=== PATIENT | female | born 1995 | race Caucasian/White ===

== ENCOUNTER 2021-10-04 16:00 | Emergency (ER) | payer OTHER, SELFPAY ==
[2021-10-04 16:12] VITALS: PULSE 80; RESP 20; TEMP 36.7; O2SAT 100
--- NOTE | 2021-10-04 16:14 | DI.RAD.S_ITS ---
PROCEDURE: XR RIBS LT MIN 3V W CXR1V INDICATIONS: felt a pop, pain TECHNIQUE: To views of the left ribs were acquired, along with a single view chest. COMPARISON: None. FINDINGS: Surgical changes and devices: None. Bones and chest wall: No fractures or dislocations. No suspicious bony lesions. Overlying soft tissues appear unremarkable. Lungs and pleura: No pleural effusions or pneumothorax. Lungs appear clear. Mediastinum: Mediastinal contours appear normal. Heart size is normal. IMPRESSION: No acute cardiopulmonary findings Unremarkable left ribs without fracture. Approved by: Abdullahi Allen M.D. on 10/04/2021 at 15:45
--- NOTE | 2021-10-04 17:57 | ED.UPPEXIN ---
HPI - Extremity Injury (Upper) <SAYDA Magaña - Last Filed: 10/04/21 18:27> General Chief Complaint: Extremity Injury, Upper Stated Complaint: cough/left rib pain Time Seen by Provider: 10/04/21 16:08 Source: patient Mode of arrival: Ambulatory History of Present Illness HPI narrative: 26-year-old female with past medical history which includes COVID in mid August with long course with a residual cough. Patient states that her cough has improved but she has had this sharp left upper rib pain since yesterday at 2:00 p.m. after coughing episode. Patient was concerned that 1 of her ribs was out of place. Patient denies any trauma, denies any fever, states that her cough is improving and she is not really coughing anymore today. She overall is feeling well but has tenderness to the left rib area. She denies any chest pain, shortness of breath, wheezing, nausea vomiting, rash, or other symptom. Related Data Previous Rx's Medication Instructions Recorded diclofenac sodium 1 % topical gel 2 g TOPICAL QID PRN #100 g 10/04/21 (Voltaren Arthritis Pain) lidocaine 5 % topical patch 1 patch TOPICAL DAILY #15 ea 10/04/21 methocarbamol 500 mg tablet 500 mg PO TID PRN #14 tab 10/04/21 Allergies Allergy/AdvReac Type Severity Reaction Status Date / Time No Known Drug Allergies Allergy Verified 10/04/21 16:14 Review of Systems <SAYDA Magaña - Last Filed: 10/04/21 18:27> Review of Systems Narrative: General: denies fever, chills, malaise, sweats, fatigue Head/Neck: denies headache, neck pain, dizziness Eyes: denies visual changes, eye pain Cardio: denies chest pain, palpitations, edema Respiratory: denies dyspnea, cough, orthopnea GI: denies abdominal pain, nausea, vomiting, or diarrhea : denies dysuria, hematuria, urinary retention, frequency or incontinence MSK: denies joint pain, muscle weakness Skin: denies rash, itching, skin lesions or other Neuro: denies numbness, tingling Exam <SAYDA Magaña - Last Filed: 10/04/21 18:27> Narrative Exam Narrative: Independently reviewed vitals signs and nursing notes. General: Cooperative, comfortable, in no acute distress, well developed and well groomed Head/Neck: Normal visual inspection and supple, atraumatic Eyes: Pupils equal round and reactive, EOMI, conjunctiva normal, no scleral icterus or injections Nose: External nose normal, nares patent, no rhinorrhea Mouth/Throat: uvula midline, moist mucus membranes Cardio: Regular rate and rhythm, no peripheral edema, warm extremities Respiratory: Normal respiratory effort, able to speak in complete sentences without audible wheezing, stridor, or rales. No retractions. Guarding left upper ribs with exam, no crepitus, breath sounds are clear throughout all justin, no cough. GI: Abdomen soft, nontender to palpation x4 quadrants, non-distended, no masses or exquisite tenderness with exam, no flank tenderness MSK: Moves all extremities, neurovascularly intact Skin: Normal capillary refill, no rash Neuro: Normal speech and cognition, normal gait, A&O x3, tone normal, moves all extremities Psych: Mental status is grossly normal, speech is clear, congruent mood, normal affect Initial Vital Signs Initial Vital Signs: Vital Signs Temperature 98.0 F 10/04/21 16:12 Pulse Rate 80 10/04/21 16:12 Respiratory Rate 20 10/04/21 16:12 Pulse Oximetry 100 10/04/21 16:12 <Greg Vigil DO - Last Filed: 10/08/21 18:54> Initial Vital Signs Initial Vital Signs: Vital Signs Temperature 98.0 F 10/04/21 16:12 Pulse Rate 80 10/04/21 16:12 Respiratory Rate 20 10/04/21 16:12 Pulse Oximetry 100 10/04/21 16:12 Course <SAYDA Magaña - Last Filed: 10/04/21 18:27> Orders Ordered: Discontinued Medications Acetaminophen (Acetaminophen 325 Mg Tablet) 975 mg PO NOW ONE Stop: 10/04/21 18:06 Last Admin: 10/04/21 18:19 Dose: 975 mg Documented by: LILY Diazepam (Diazepam 2 Mg Tablet) 2 mg PO NOW ONE Stop: 10/04/21 18:06 Last Admin: 10/04/21 18:20 Dose: 2 mg Documented by: LILY Lidocaine (Lidocaine Patch 1 Each Adh..Patch) 1 each TOP NOW ONE Stop: 10/04/21 18:06 Last Admin: 10/04/21 18:20 Dose: 1 each Documented by: LILY Methocarbamol (Methocarbamol 500 Mg Tablet) 500 mg PO NOW ONE Stop: 10/04/21 18:06 Last Admin: 10/04/21 18:20 Dose: 500 mg Documented by: LILY Vital Signs Vital signs: Vital Signs - 8 hr 10/04/21 16:12 Temperature 98.0 F Pulse Rate 80 Respiratory Rate 20 Pulse Oximetry 100 <Greg Vigil DO - Last Filed: 10/08/21 18:54> Orders Ordered: Discontinued Medications Acetaminophen (Acetaminophen 325 Mg Tablet) 975 mg PO NOW ONE Stop: 10/04/21 18:06 Last Admin: 10/04/21 18:19 Dose: 975 mg Documented by: LILY Diazepam (Diazepam 2 Mg Tablet) 2 mg PO NOW ONE Stop: 10/04/21 18:06 Last Admin: 10/04/21 18:20 Dose: 2 mg Documented by: LILY Lidocaine (Lidocaine Patch 1 Each Adh..Patch) 1 each TOP NOW ONE Stop: 10/04/21 18:06 Last Admin: 10/04/21 18:20 Dose: 1 each Documented by: LILY Methocarbamol (Methocarbamol 500 Mg Tablet) 500 mg PO NOW ONE Stop: 10/04/21 18:06 Last Admin: 10/04/21 18:20 Dose: 500 mg Documented by: LILY Vital Signs Vital signs: Vital Signs - 8 hr 10/04/21 16:12 Temperature 98.0 F Pulse Rate 80 Respiratory Rate 20 Pulse Oximetry 100 MDM - Extremity Injury (Upper) <[facility] - Last Filed: 10/04/21 18:27> Imaging Data ribs XR: Radiologist's Impression: PROCEDURE:? XR RIBS LT MIN 3V W CXR1V ? INDICATIONS:? felt a pop, pain ? TECHNIQUE:? To views of the left ribs were acquired, along with a single view chest.? ? COMPARISON:? None. ? FINDINGS:? ? Surgical changes and devices:? None.? ? Bones and chest wall:? No fractures or dislocations.? No suspicious bony lesions.? Overlying soft tissues appear unremarkable.? ? Lungs and pleura:? No pleural effusions or pneumothorax.? Lungs appear clear.? ? Mediastinum:? Mediastinal contours appear normal.? Heart size is normal.? ? IMPRESSION:? ? No acute cardiopulmonary findings Unremarkable left ribs without fracture. ? ? ? Approved by: Abdullahi Allen M.D. on 10/04/2021 at 15:45? [facility] Narrative Medical decision making narrative: 26-year-old female presents to the emergency department for left-sided rib pain after coughing episode yesterday. Patient states that she had COVID in the middle of August with a long residual cough. She denies any illness at this time, states that her cough has improved greatly, she has 2 small children at home and endorses that her fatigue might be contributing to her overall pain. Patient states that she felt a warm-after a short pain during her coughing episode it and was concerned for bleeding. She denies any shortness of breath, chest pain, fever, difficulty breathing, nausea or vomiting. X-ray was negative for pneumothorax, fracture, without any acute cardiopulmonary findings. Overall soft tissues appeared unremarkable. Oral patient was given lidocaine patch, methocarbamol, she took ibuprofen last at 1:00 p.m. so she was not given Toradol, Tylenol and Valium. Patient states marked improvement in her symptoms. Instructed patient to follow-up with her PCP for a PT referral, instructed patient to do some light stretching, dehydrated, she is given strict return precautions, she is appropriate and amenable to discharge home. Vital signs are stable on repeat examination is unremarkable. Patient has been informed of results. Patient has been given strict return to ER precautions for any new or worsening symptoms. Patient understands to follow up closely with outpatient providers as instructed. Patient understands plan and agrees to discharge home. All questions and concerns answered at this time. Discharge Plan Departure Patient Disposition: Home Clinical Impression: Rib pain on left side, Acute costochondritis Instructions: DI for Costochondritis, DI for Rib Contusion Activity Restrictions/Additional Instructions: *You have been diagnosed with costochondritis. Please take ibuprofen every 6-8 hours, Tylenol every 6 hours, Robaxin every 8 hours as needed, and apply diclofenac gel where it is painful, allow it to dry, and apply a lidocaine patch. Please follow-up with your primary care provider for a physical therapy referral. You may try gentle stretching, pressures in the breast and cough, normal posture, this may go back into place or the inflammation around where the rib attaches to the cartilage may calm down and feel better soon. *What to do: *Please continue to take your regular medications as directed. [x ] New medication prescriptions sent to your pharmacy: [ [facility]] [ ] New medication written as a paper prescription [ ] No new medications given *Please follow up with your primary care provider in 2-3 days, call for an appointment. Let them know you were seen in the Emergency Department and that we ask that you be seen in follow up. We will electronically transmit a record of today's note if your PCP is in our system *If you do not have a primary care provider please contact the [facility] Resource line at [phone]. They will ask some questions about your medical history and help get you set up with a doctor in the community. *Return to Emergency Department if you should have any new, worsening or concerning symptoms, such as [fever greater than 101F, chills, worsening pain, persistent vomiting or other bothersome symptoms] Prescriptions: New lidocaine 5 % adhesive patch,medicated 1 patch topical DAILY Qty: 15 0RF Rx Instructions: leave on most painful area for up to 12 hrs methocarbamol 500 mg tablet 500 mg PO TID PRN (Reason: muscle spasm) Qty: 14 0RF diclofenac sodium [Voltaren Arthritis Pain] 1 % gel 2 g topical QID PRN (Reason: rib pain) Qty: 100 0RF Rx Instructions: apply to area over where ribs hurt <Greg Vigil DO - Last Filed: 10/08/21 18:54> Cosign ED Attending Cosignature Attestation: I was immediately available in the department for consultation. This documentation has been reviewed and I agree with assessment and plan. Supervised by Greg Vigil DO
[2021-10-04] MEDS: ACETAMINOPHEN 325 MG TABLET 975 MG PO (18:19)
[2021-10-04] MEDS: LIDOCAINE PATCH 1 EACH ADH..PATCH TOP (18:20)
[2021-10-04] MEDS: diazePAM 2 MG TABLET PO (18:20)
[2021-10-04] MEDS: methocarbamoL 500 MG TABLET PO (18:20)
== END 2021-10-04 18:24 | disposition home or self-care (01) ==
PROVIDERS: Emergency Provider Nurse Practitioner Critical Care Medicine
DX: M94.0 Chondrocostal junction syndrome [Tietze] (principal); R05.9 Cough, unspecified; Z86.16 Personal history of COVID-19
CPT/HCPCS: 71101; 99283

== ENCOUNTER 2022-08-28 17:19 | Emergency (ER) | payer OTHER, SELFPAY ==
--- NOTE | 2022-08-28 17:29 | DI.US.S_ITS ---
PROCEDURE: US OB <= 14 WEEKS FETUS INDICATIONS: SPOTTING OUTSIDE/PRIOR DATING DATA: Last menstrual period (LMP): 06/11/2022. LMP-based estimated date of delivery (THEODORA): 03/18/2023. First dating scan (date and location): 08/28/2022. Estimated date of delivery (THEODORA) from first dating scan: 04/08/2023. TECHNIQUE: Real-time scanning was performed of the fetus and maternal pelvic organs, with image documentation. Endovaginal scanning was also performed to better visualize the fetus and maternal ovaries. COMPARISON: None. FINDINGS: Embryo: Mentor-rump length measuring 1.7 cm corresponding to 8 weeks 1 day. Heart rate: No cardiac motion. Maternal organs: Right ovary is unremarkable. Left ovary is not seen. IMPRESSION: Guzman intrauterine . Mentor-rump length measuring 1.7 cm. No cardiac motion. Ultrasound findings diagnostic of failure. We strive to produce accurate, complete, and clear reports of imaging services. To assist us in improving patient care, this report was composed using standard report templates and voice recognition software. Therefore, it may contain abnormal punctuation, insertions and/or omissions. Occasional wrong-word or sound-alike substitutions may occur. Though we review the report and make efforts to correct it, we do recommend that the report be read carefully in proper context to recognize any text inaccuracies. Dictated by: Vinicius Saenz M.D. on 08/28/2022 at 20:46 Approved by: Vinicius Saenz M.D. on 08/28/2022 at 20:48
[2022-08-28 17:30] VITALS: BP 140/60; PULSE 100; RESP 16; TEMP 37; O2SAT 99; BMI 22.8
[2022-08-28 18:17] LABS: Add Manual Diff / Slide Review NO; Basophils Absolute Auto 0 /uL (0-100); Basophils Percent Auto 0.5 % (0-2); Eosinophils Absolute Auto 400 /uL (0-450); Eosinophils Percent Auto 4.4 % (2-4); Hematocrit 39.1 % (36-46); Hemoglobin 13.3 g/dL (12.0-16.0); Lymphocytes Absolute Auto 1400 /uL (1100-4500); Lymphocytes Percent Auto 17.6 % (25-40); Mean Corpuscular Hemoglobin 27.2 PG (26-34); Mean Corpuscular Volume 80.1 fL (80-100); Monocytes Absolute Auto 400 /uL (0-900); Monocytes Percent Auto 5.3 % (3-14); Neutrophils Absolute Auto 5900 /uL (1500-7000); Neutrophils Percent Auto 72.2 % (50-75); Platelet Count 203 X10^3/uL (150-400); Red Blood Cell Count 4.88 X10^6/uL (4.0-5.2); Red Cell Distribution Width 14.4 % (11.6-14.8); White Blood Cell Count 8.2 X10^3/uL (4.5-11.0)
[2022-08-28 18:25] LABS: Alanine Aminotransferase 13 IU/L (<35); Albumin 4.7 g/dL (3.5-5.0); Albumin Globulin Ratio 1.6 (1.0-2.8); Alkaline Phosphatase 45 U/L (38-126); Aspartate Aminotransferase 18 IU/L (14-36); BUN Creatinine Ratio 18.2 (6-22); Bilirubin Total 0.7 mg/dL (0.2-1.3); Blood Urea Nitrogen 12 mg/dL (7-17); Calcium 9.3 mg/dL (8.4-10.2); Carbon Dioxide 25 mmol/L (22-32); Chloride 102 mmol/L (98-107); Estimated Glomerular Filt Rate > 60 mL/min (>60); Glucose 90 mg/dL (70-100); HEMOLYSIS < 15 (0-50); Potassium 3.7 mmol/L (3.4-5.1); Sodium 138 mmol/L (137-145); Total Protein 7.7 g/dL (6.3-8.2)
[2022-08-28 18:41] LABS: HCG Quantitative /Beta subunit 6448.4 mIU/mL
--- NOTE | 2022-08-28 19:57 | ED_ITS ---
HPI - Female Genitourinary General Chief complaint: OB/Uterine Contractions Stated complaint: 11 wks vaginal bleed/cramps/back pain Time Seen by Provider: 08/28/22 19:52 History of Present Illness HPI Narrative: 27-year-old female nonsmoker is a at 11 weeks and presents with spotting and low pelvic discomfort which started yesterday. She is not dizzy nor weak or lightheaded and has no fever or chills. She denies any chest pain or shortness of breath. She states that her pain is mild and more crampy than anything. She denies any significant bleeding but states it has been steady. She denies dysuria, frequency or urgency. She has not yet seen an OB provider for this Related Data Previous Rx's Medication Instructions Recorded diclofenac sodium 1 % topical gel 2 g topical QID PRN rib pain #100 10/04/21 (Voltaren Arthritis Pain) grams lidocaine 5 % topical patch 1 patch topical DAILY rib pain #15 10/04/21 ea methocarbamol 500 mg tablet 500 mg PO TID PRN muscle spasm #14 10/04/21 tabs cephalexin 500 mg capsule 500 mg PO BID #14 caps 08/28/22 Allergies Allergy/AdvReac Type Severity Reaction Status Date / Time No Known Drug Allergies Allergy Verified 10/04/21 16:14 Review of Systems Review of Systems Narrative: GENERAL: Denies chills, fatigue, malaise, fever, sweats. HEENT: Denies sinus pain, ear pain, sore throat, difficulty swallowing, di zziness. RESPIRATORY: Denies dyspnea, cough, wheezing, hemoptysis, sputum. CARDIOVASCULAR: Denies chest pain, palpitations, orthopnea, edema, GASTROINTESTINAL: Denies nausea, vomiting, abdominal pain, diarrhea, constipation, melena. : See HPI MUSCULOSKELETAL: denies weakness, joint pain, or bony pain SKIN: Denies rash, skin lesions, or other NEUROLOGIC: Denies weakness, headache, numbness, change in speech, confusion, seizures, incoordination. PSYCHIATRIC: No concerning psychosocial issues. 12 point review of systems is negative except for those stated above Exam Narrative Exam Narrative: GEN: AOx3 and in mild distress EYES: Pupils are equal, round, and reactive to light and accommodation. Extraoccular muscles are intact bilaterally. There is no subconjunctival hemorrhage or exudate. CHEST: Lungs are clear to auscultation bilaterally and free of wheezes, rales, or rhonchi. Heart rate is regular rhythm, there are no murmurs, clicks, rubs, or gallops. There is no chest wall tenderness. ABD: Abdomen is soft and nontender. There is no guarding or rebound. Bowel sounds are normal in all 4 quadrants. There is no mass or organomegaly. EXT: Full painless ROM of all extremities with no loss of sensation or strength. SKIN: Warm, pink, and dry. No erythema or rash Initial Vital Signs Initial Vital Signs: Vital Signs Temperature 98.6 F 08/28/22 17:30 Pulse Rate 100 H 08/28/22 17:30 Respiratory Rate 16 08/28/22 17:30 Blood Pressure 140/60 08/28/22 17:30 Pulse Oximetry 99 08/28/22 17:30 Oxygen Delivery Method 08/28/22 17:30 Course Orders Ordered: ED Orders 08/28/22 17:29 US OB <= 14 weeks fetus Stat 08/28/22 17:53 Complete Blood Count AUTO DIFF Stat Comprehensive Metabolic Panel Stat HCG Quantitative /Beta subunit Stat Type and Screen Stat Discontinued Medications Cefazolin Sodium (Cephalexin 250 Mg Prepack) 1 bottle MISC SEEINSTR ONE Stop: 08/28/22 20:19 Last Admin: 08/28/22 20:43 Dose: 1 1000units Documented By: KATHERINE Vital Signs Vital signs: Vital Signs - 8 hr 08/28/22 17:30 08/28/22 21:19 Temperature 98.6 F Pulse Rate 100 H 89 Respiratory Rate 16 Blood Pressure 140/60 110/63 Pulse Oximetry 99 95 Oxygen Delivery Method Room Air Room Air MDM - Female Genitourinary Lab Data Result diagrams: 08/28/22 17:53 08/28/22 17:53 Labs: Lab Results 08/28/22 08/28/22 08/28/22 Range/Units 17:53 17:53 17:53 WBC 8.2 (4.5-11.0) X10^3/uL RBC 4.88 (4.0-5.2) X10^6/uL Hgb 13.3 (12.0-16.0) g/dL Hct 39.1 (36-46) % MCV 80.1 (80-100) fL MCH 27.2 (26-34) PG MCHC 34.0 (30-36) % RDW 14.4 (11.6-14.8) % Plt Count 203 (150-400) X10^3/uL Neut % (Auto) 72.2 (50-75) % Lymph % (Auto) 17.6 L (25-40) % [place] % (Auto) 5.3 (3-14) % Eos % (Auto) 4.4 H (2-4) % Baso % (Auto) 0.5 (0-2) % Neut # (Auto) 5900 (2582-9768) /uL Lymph # (Auto) 1400 (2322-2488) /uL [place] # (Auto) 400 (0-900) /uL Eos # (Auto) 400 (0-450) /uL Baso # (Auto) 0 (0-100) /uL Sodium 138 (137-145) mmol/L Potassium 3.7 (3.4-5.1) mmol/L Chloride 102 (98-107) mmol/L Carbon Dioxide 25 (22-32) mmol/L BUN 12 (7-17) mg/dL Creatinine 0.66 (0.52-1.04) mg/dL Estimated GFR > 60 (>60) mL/min BUN/Creatinine Ratio 18.2 (6-22) Glucose 90 (70-100) mg/dL Calcium 9.3 (8.4-10.2) mg/dL Total Bilirubin 0.7 (0.2-1.3) mg/dL AST 18 (14-36) IU/L ALT 13 (<35) IU/L Alkaline Phosphatase 45 (38-126) U/L Total Protein 7.7 (6.3-8.2) g/dL Albumin 4.7 (3.5-5.0) g/dL Globulin 3.0 (1.7-4.1) g/dL Albumin/Globulin Ratio 1.6 (1.0-2.8) HCG, Quant 6448.4 mIU/mL Blood Type B Positive Antibody Screen Negative Urine Dip Bedside Urine Glucose Negative Bedside Urine Bilirubin - Negative Bedside Urine Ketone +/- 5 Urine Specific [place] 1.015 Bedside Urine Occult Blood +++ Bedside Urine pH 7.0 Bedside Urine Protein +/- 15 Bedside Urine Urobilinogen - Negative Bedside Urine Nitrite - Negative Bedside Urine Leukocytes + 70 Esterase MDM Narrative Medical decision making narrative: [27-year-old female nonsmoker is a at 11 weeks with some lower abdominal and pelvic cramping and spotting for the past 24 hours] Multiple etiologies for patient's symptoms considered including, but not limited to: [Miscarriage, subchorionic hemorrhage versus other] Prior Charts reviewed: Prior visits in emergency department for costochondritis Labs reviewed and interpreted by myself: No leukocytosis or evidence of anemia, electrolytes and renal function appropriate. Beta quantitative hCG 6448. Blood type B positive Imaging reviewed: demonstrates failure Findings and discharge diagnosis discussed with patient/family followed by verbalization of understanding Return precautions discussed with patient/family whom verbalize understanding of diagnosis and plan Discharge Plan Departure Patient Disposition: Home Clinical Impression: UTI (urinary tract infection), demise Instructions: Urinary Tract Infection, DI for Miscarriage Activity Restrictions/Additional Instructions: *You have been diagnosed with [failed , UTI *What to do: *Please continue to take your regular medications as directed. [x ] New medication prescriptions sent to your pharmacy: [[facility] ] [ ] New medication written as a paper prescription [ ] No new medications given *Please follow up with your primary care provider in 2-3 days, call for an appointment. Let them know you were seen in the Emergency Department and that we ask that you be seen in follow up. We will electronically transmit a record of today's note if your PCP is in our system * as we discussed if you do not have evidence of miscarriage in the next few days such as increased cramping with significantly increased bleeding in the passage of clots please return here, contact the Ob provider listed below or your staff nurse midwife *Return to Emergency Department if you should have any new, worsening or concerning symptoms, such as [fever greater than 101 F, shaking chills, worsening pain, persistent vomiting or other bothersome symptoms] Prescriptions: New cephalexin 500 mg capsule 500 mg PO BID Qty: 14 0RF No Action lidocaine 5 % adhesive patch,medicated 1 patch topical DAILY Qty: 15 0RF Rx Instructions: leave on most painful area for up to 12 hrs methocarbamol 500 mg tablet 500 mg PO TID PRN (Reason: muscle spasm) Qty: 14 0RF diclofenac sodium [Voltaren Arthritis Pain] 1 % gel 2 g topical QID PRN (Reason: rib pain) Qty: 100 0RF Rx Instructions: apply to area over where ribs hurt Referrals: Provider,Dulce CUELLAR [Primary Care Provider] - Jw Jensen MD [Physician] - Stand Alone Forms: Patient Portal/API
[2022-08-28] MEDS: cephALEXin 250 MG PREPACK 1 BOTTLE MISC (20:43)
[2022-08-28 21:19] VITALS: BP 110/63; PULSE 89; O2SAT 95
== END 2022-08-28 21:20 | disposition home or self-care (01) ==
PROVIDERS: Emergency Medicine; Emergency Provider Emergency Medicine
DX: O03.9 Complete or unspecified spontaneous abortion without complication (principal); N39.0 Urinary tract infection, site not specified
CPT/HCPCS: 76801; 76817; 80053; 81003; 84702; 85025; 86850; 86900; 86901; 99281; 99283